=== PATIENT | female | born 1950 | race Caucasian/White ===

== ENCOUNTER → 2022-10-08 | Outpatient (CLI) | payer MEDICARE ==
[~2022-10-08] MED LIST: CALCA500CH PO; CALCNI; DAILY MULTIPLE1 EACH PO; Pseudoephedrine30 MG PO
== END | disposition home or self-care (01) ==
LOC: PLD 13:37 → LAB SHORT 13:37
DX: L82.1 Other seborrheic keratosis (principal)
CPT/HCPCS: 88305